=== PATIENT | male | born 1960 | race Caucasian/White ===

== ENCOUNTER 2017-05-26 09:06 | Observation (INO) | payer BC ==
--- NOTE | 2017-05-26 09:43 | ER Document Report ---
ED Medical Screen (RME) - General Chief Complaint: Abscess Stated Complaint: RECTAL PROBLEM Time Seen by Provider: 05/26/17 09:38 Notes: 56 yo male c/o rectal pain x 1 week. pt has hx/o perirectal abscess which was surgically drained about 1 1/2 yrs ago. pt was seen by pcm 3 days ago for same , given antibiotic injection and oral antibiotics, but pain has intensified. TRAVEL OUTSIDE OF THE [place] IN LAST 30 DAYS: No - Related Data Allergies/Adverse Reactions: No Known Allergies Allergy (Unverified 02/11/14 09:46) Past Medical History - Social History Chew tobacco use (# tins/day): No Frequency of alcohol use: None Drug Abuse: None - Past Medical History Cardiac Medical History: Reports: Hx Hypercholesterolemia, Hx Hypertension - ON MEDICATIONS...STATES CONTROLLED Denies: Hx Coronary Artery Disease - HIGH CHOLESTEROL, Hx Heart Attack Pulmonary Medical History: Denies: Hx Asthma, Hx Bronchitis, Hx COPD, Hx Pneumonia Neurological Medical History: Denies: Hx Cerebrovascular Accident, Hx Seizures Renal/ Medical History: Denies: Hx Peritoneal Dialysis Musculoskeltal Medical History: Denies Hx Arthritis Past Surgical History: Reports: Hx Orthopedic Surgery - Immunizations Hx Diphtheria, Pertussis, Tetanus Vaccination: No Physical Exam - Vital signs Vitals: Temp Pulse Resp BP Pulse Ox 98.6 F 91 20 144/80 H 96 05/26/17 09:15 05/26/17 09:15 05/26/17 09:15 05/26/17 09:15 05/26/17 09:15 Course - Vital Signs Vital signs: Temp Pulse Resp BP Pulse Ox 98.6 F 91 20 144/80 H 96 05/26/17 09:15 05/26/17 09:15 05/26/17 09:15 05/26/17 09:15 05/26/17 09:15
--- NOTE | 2017-05-26 11:19 | ER Document Report ---
ED General - General Chief Complaint: Abscess Stated Complaint: RECTAL PROBLEM Time Seen by Provider: 05/26/17 09:38 TRAVEL OUTSIDE OF THE [place] IN LAST 30 DAYS: No - HPI Notes: Patient is a 56-year-old male who presents the ED complaining of an abscess near his rectum 5 days. Patient states that he was evaluated by his PCM 3 days ago and was given a shot and sent home on antibiotics of which he cannot remember what he is on. Patient states that the pain and swelling have worsened. He has not noticed any obvious drainage. Patient states that he has had 2 perirectal abscesses in the past with the latest having to be taken care of by a general surgeon. His last PO intake was last evening. Patient states that he has felt feverish on and off without any objective temperature. He has been taking some [id number] meds with minimal relief. Denies any headache , neck stiffness, URI, sore throat, chest pain, palpitations, syncope, cough, shortness of breath, wheeze, dyspnea, abdominal pain, nausea/vomiting/diarrhea, urinary retention, dysuria, hematuria, or rash. Denies any drug allergies. Patient has a medical history significant for hypertension, hypercholesterolemia , and gout. - Related Data Allergies/Adverse Reactions: No Known Allergies Allergy (Unverified 02/11/14 09:46) Past Medical History - Social History Smoking Status: Current Some Day Smoker Chew tobacco use (# tins/day): No Frequency of alcohol use: None Drug Abuse: None Family History: Reviewed & Not Pertinent - Past Medical History Cardiac Medical History: Reports: Hx Hypercholesterolemia, Hx Hypertension - ON MEDICATIONS...STATES CONTROLLED Denies: Hx Coronary Artery Disease - HIGH CHOLESTEROL, Hx Heart Attack Pulmonary Medical History: Denies: Hx Asthma, Hx Bronchitis, Hx COPD, Hx Pneumonia Neurological Medical History: Denies: Hx Cerebrovascular Accident, Hx Seizures Renal/ Medical History: Denies: Hx Peritoneal Dialysis Musculoskeltal Medical History: Denies Hx Arthritis Past Surgical History: Reports: Hx Orthopedic Surgery - Immunizations Hx Diphtheria, Pertussis, Tetanus Vaccination: No Review of Systems - Review of Systems Notes: REVIEW OF SYSTEMS: CONSTITUTIONAL : see hpi EENT: Denies eye, ear, throat, or mouth pain or symptoms. Denies nasal or sinus congestion or discharge. Denies throat, tongue, or mouth swelling or difficulty swallowing. CARDIOVASCULAR: Denies chest pain. Denies palpitations or racing or irregular heart beat. Denies ankle edema. RESPIRATORY: Denies cough, cold, or chest congestion. Denies shortness of breath, difficulty breathing, or wheezing. GASTROINTESTINAL: Denies abdominal pain or distention. Denies nausea, vomiting , or diarrhea. Denies blood in vomitus, stools, or per rectum. Denies black, tarry stools. Denies constipation. GENITOURINARY: Denies difficulty urinating, painful urination, burning, frequency, blood in urine, or discharge. MUSCULOSKELETAL: Denies back or neck pain or stiffness. Denies joint pain or swelling. SKIN: see hpi HEMATOLOGIC : Denies easy bruising or bleeding. LYMPHATIC: Denies swollen, enlarged glands. NEUROLOGICAL: Denies confusion or altered mental status. Denies passing out or loss of consciousness. Denies dizziness or lightheadedness. Denies headache. Denies weakness or paralysis or loss of use of either side. Denies problems with gait or speech. Denies sensory loss, numbness, or tingling. ALL OTHER SYSTEMS REVIEWED AND NEGATIVE. Dictation was performed using [employer] voice recognition software Physical Exam - Vital signs Vitals: Temp Pulse Resp BP Pulse Ox 98.6 F 91 20 144/80 H 96 05/26/17 09:15 05/26/17 09:15 05/26/17 09:15 05/26/17 09:15 05/26/17 09:15 Notes: PHYSICAL EXAMINATION: GENERAL: Well-appearing, well-nourished and in no acute distress. LUNGS: Breath sounds clear to auscultation bilaterally and equal. No wheezes rales or rhonchi. HEART: Regular rate and rhythm without murmurs, rubs, gallops. ABDOMEN: Soft, nontender, nondistended abdomen. No guarding, no rebound. No masses appreciated. Normal bowel sounds present. No CVA tenderness bilaterally. Musculoskeletal: FROM to passive/active. Strength 5+/5. Extremities: No cyanosis, clubbing, or edema b/l. Peripheral pulses 2+. Capillary refill less than 3 seconds. NEUROLOGICAL: Normal speech. Normal sensory, motor exams PSYCH: Normal mood, normal affect. SKIN: + erythema/induration (perirectal abscess) left medial buttock. The abscess does feel deep and it seems as though it tracks towards the anus. + tenderness to palp. No discharge. approx 3x4cm +/- Course - Re-evaluation Re-evalutation: 05/26/17 11:15 Patient is an afebrile, well-hydrated, 56-year-old male who presents to the ED with a suspected perirectal abscess. Vitals are stable. PE otherwise unremarkable at this time. Dr. Castillo (Gen Surg) notified who will come and eval the patient. CBC, CMP, saline lock, & NPO ordered. Last PO intake was last evening. 05/26/17 11:40 Dr. Castillo evaluated the patient and accepted care. Further direction per Gen. Surgery. - Vital Signs Vital signs: Temp Pulse Resp BP Pulse Ox 98.6 F 91 20 144/80 H 96 05/26/17 09:15 05/26/17 09:15 05/26/17 09:15 05/26/17 09:15 05/26/17 09:15 - Laboratory Result Diagrams: 05/26/17 11:30 05/26/17 11:30 Discharge - Discharge Clinical Impression: Li-rectal abscess Condition: Stable Disposition: ADMITTED INPATIENT Admitting Provider: Surgicalist - Dr. Castillo Unit Admitted: Surgical Floor
[2017-05-26 11:40] LABS: ABSOLUTE BASOPHILS # (AUTO) 0.1 10^3/uL (0.0-0.2); ABSOLUTE EOSINOPHILS # (AUTO) 0.1 10^3/uL (0.0-0.6); ABSOLUTE LYMPHOCYTES (AUTO) 1.4 10^3/uL (0.5-4.7); ABSOLUTE MONOCYTES (AUTO) 1.1 10^3/uL (0.1-1.4); ABSOLUTE NEUT (AUTO) 9.7 10^3/uL (1.7-8.2); BASOPHILS % (AUTO) 1.2 % (0-2); EOSINOPHILS % (AUTO) 0.6 % (0-6); HEMATOCRIT 44.2 % (37.9-51.0); HEMOGLOBIN 15.2 g/dL (13.5-17.0); HGB HCT DIFFERENCE 1.4; LYMPHOCYTES % (AUTO) 11.1 % (13-45); MEAN CORPUSCULAR HEMOGLOBIN 29.7 pg (27.0-33.4); MEAN CORPUSCULAR HGB CONC 34.5 g/dL (32.0-36.0); MEAN CORPUSCULAR VOLUME 86 fl (80-97); MONOCYTES % (AUTO) 8.8 % (3-13); RED BLOOD COUNT 5.14 10^6/uL (4.35-5.55); RED CELL DISTRIBUTION WIDTH 13.6 % (11.5-14.0); SEGMENTED NEUTROPHILS % (AUTO) 78.3 % (42-78); WHITE BLOOD COUNT 12.4 10^3/uL (4.0-10.5)
[2017-05-26] MEDS ORDERED: AMPICILLIN SOD/SULBACTAM 3 GM VIAL IV ONE (11:44)
[2017-05-26] MEDS ORDERED: RINGERS SOLUTION 1,000 ML IV PRN (11:46)
[2017-05-26 11:58] LABS: ALANINE AMINOTRANSFERASE 26 U/L (21-72); ALBUMIN 3.8 g/dL (3.5-5.0); ALKALINE PHOSPHATASE 61 U/L (38-126); ANION GAP 11 (5-19); ASPARTATE AMINO TRANSFERASE 17 U/L (17-59); BILIRUBIN,DIRECT 0.5 mg/dL (0.0-0.4); BILIRUBIN,TOTAL 1.1 mg/dL (0.2-1.3); BLOOD UREA NITROGEN 13 mg/dL (7-20); CALCIUM 9.3 mg/dL (8.4-10.2); CARBON DIOXIDE 29 mmol/L (22-30); CHLORIDE 98 mmol/L (98-107); CREATININE RESULT 0.91 mg/dL (0.52-1.25); GLUCOSE 270 mg/dL (75-110); POTASSIUM 4.8 mmol/L (3.6-5.0); SODIUM 138.4 mmol/L (137-145); TOTAL PROTEIN 6.7 g/dL (6.3-8.2)
--- NOTE | 2017-05-26 12:05 | PDOC H&P ---
History of Present Illness Admission Date/PCP: 05/26/17 11:52 Patient complains of: Perianal pain History of Present Illness: CAROL RICH JR is a 56 year old male Who presents to the emergency department complaining a week and a half history of left perianal swelling, pain. Patient has a history of perianal abscess drained in 2 years ago on the left side in [place] once in the emergency department and once in the operating room. After the second operation, he had a wound that was packed at home. The patient did well until recently when he developed the above symptoms. 2 days ago he was seen in urgent care where he was diagnosed with perianal abscess, given an IV injection and given pain medications and p.o. antibiotics to take at home. Symptoms did not completely resolve so is seeking additional medical care. He seen in the emergency department by the ER physician and felt to have a recurrent perianal abscess. Surgery was consulted, the patient evaluated, and offered surgical treatment. Past Medical History Cardiac Medical History: Reports: Hyperlipidema, Hypertension - ON MEDICATIONS...STATES CONTROLLED Denies: Coronary Artery Disease - HIGH CHOLESTEROL, Myocardial Infarction Pulmonary Medical History: Denies: Asthma, Bronchitis, Chronic Obstructive Pulmonary Disease (COPD), Pneumonia Neurological Medical History: Denies: Seizures Musculoskeltal Medical History: Denies: Arthritis Hematology: Denies: Anemia Past Surgical History Past Surgical History: Reports: Orthopedic Surgery, Other - Repair of umbilical hernia; perianal abscess drainage; right second fing Social History Smoking Status: Current Some Day Smoker Family History Family History: Reviewed & Not Pertinent Parental Family History Reviewed: Yes Children Family History Reviewed: Yes Sibling(s) Family History Reviewed.: Yes Medication/Allergy Home Medications: Allopurinol [Zyloprim 300 mg Tablet] 300 mg PO DAILY 02/17/14 Amlodipine Besylate 10 mg PO DAILY 02/17/14 Simvastatin 40 mg PO DAILY 02/17/14 Valsartan/Hydrochlorothiazide [Valsartan-Hctz 320-25 mg Tab] 325 mg PO DAILY 12/28 Allergies/Adverse Reactions: No Known Allergies Allergy (Unverified 02/11/14 09:46) Review of Systems Constitutional: ABSENT: chills, fever(s), headache(s), weight gain, weight loss Eyes: ABSENT: visual disturbances Ears: ABSENT: hearing changes Cardiovascular: ABSENT: chest pain, dyspnea on exertion, edema, orthropnea, palpitations Respiratory: PRESENT: cough - Chronic Gastrointestinal: PRESENT: other - Patient is been having regular bowel movements. Genitourinary: ABSENT: dysuria, hematuria Musculoskeletal: ABSENT: joint swelling Integumentary: ABSENT: rash, wounds Neurological: ABSENT: abnormal gait, abnormal speech, confusion, dizziness, focal weakness, syncope Psychiatric: ABSENT: anxiety, depression, homidical ideation, suicidal ideation Endocrine: ABSENT: cold intolerance, heat intolerance, polydipsia, polyuria Physical Exam Vital Signs: Temp Pulse Resp BP Pulse Ox 98.6 F 91 20 144/80 H 96 05/26/17 09:15 05/26/17 09:15 05/26/17 09:15 05/26/17 09:15 05/26/17 09:15 General appearance: PRESENT: no acute distress Head exam: PRESENT: normocephalic Eye exam: PRESENT: EOMI Ear exam: PRESENT: TM's normal bilaterally Neck exam: PRESENT: carotid bruit, full ROM Respiratory exam: PRESENT: rhonchi Cardiovascular exam: PRESENT: RRR Pulses: PRESENT: +1 pedal pulses bilateral, +2 pedal pulses bilateral Vascular exam: PRESENT: normal capillary refill GI/Abdominal exam: PRESENT: other - No abdominal distention operative scars consistent with previous surgery. Rectal exam: PRESENT: other - Anal crease. There is diffuse tenderness, swelling induration left perianal tissue extending towards the perineum. There is scar consistent with previous surgery. There is no active drainage. I did not digitalize the anal rectal canal Musculoskeletal exam: PRESENT: full ROM Neurological exam: PRESENT: alert, awake, oriented to person, oriented to place Psychiatric exam: PRESENT: appropriate affect Skin exam: PRESENT: normal color Assessment & Plan - Diagnosis (1) Li-rectal abscess Is this a current diagnosis for this admission?: Yes Plan: Assessment: Patient's clinical examination in light of his remote and recent history is most consistent with recurrent left perianal abscess; may have a previously undiagnosed fistula in ano. Last colonoscopy over 10 years ago, reportedly normal. Recommendation 1. Keep n.p.o. IV fluids IV antibiotics 2. Take patient to the operating room for exam under anesthesia, drainage of septic focus, possible fistulectomy, possible seton placement 3. Patient may be able to go home later today or tomorrow morning. (2) Gout Is this a current diagnosis for this admission?: No (3) Obesity Is this a current diagnosis for this admission?: Yes (4) Morbid obesity with BMI of 45.0-49.9, adult Is this a current diagnosis for this admission?: Yes (5) HTN (hypertension) Is this a current diagnosis for this admission?: Yes (6) Hypercholesterolemia Is this a current diagnosis for this admission?: Yes - Time Time Spent: 50 to 70 Minutes Critical Time spent with patient: Less than 15 minutes Smoking Cessation Education: 3 to 10 minutes Medications reviewed and adjusted accordingly: Yes Anticipated discharge: Home - Inpatient Certification Medical Necessity: Need For IV Fluids, Need for IV Antibiotics, Need for Surgery
[2017-05-26] MEDS ORDERED: BUPIVACAINE HCL 0.25 % INJ/PF (2.5 MG/1 ML) 30 ML VIAL ONE (12:58)
[2017-05-26] MEDS ORDERED: METOCLOPRAMIDE HCL INJ/PF 10 MG/2 ML SDV ONE (13:07)
[2017-05-26] MEDS ORDERED: GLYCOPYRROLATE INJ 0.4 MG/2 ML VIAL ONE (13:07)
[2017-05-26] MEDS ORDERED: LIDOCAINE 2% INJ-PF (20 MG/ML) 10 ML AMPUL ONE (13:07)
[2017-05-26] MEDS ORDERED: DEXAMETHASONE SOD PHOSPHATE INJ 4 MG/1 ML VIAL ONE (13:07)
[2017-05-26] MEDS ORDERED: ONDANSETRON HCL INJ/PF 4 MG/2 ML SDV ONE (13:07)
[2017-05-26] MEDS ORDERED: ONDANSETRON HCL INJ/PF 4 MG/2 ML SDV IV PRN (13:47)
[2017-05-26] MEDS ORDERED: KETOROLAC TROMETHAMINE 10 MG TABLET PO PRN (13:48)
--- NOTE | 2017-05-26 16:02 | EKG REPORT ---
SEVERITY:- NORMAL ECG - SINUS RHYTHM : Confirmed by: Zach Santoro MD 26-May-2017 16:01:03
--- NOTE | 2017-05-26 16:38 | OPERATIVE REPORT E ---
Operative Report NAME: CAROL RICH : 1960 AGE: 56Y DATE OF SURGERY: 05/26/2017 ROOM: 425 PREOPERATIVE DIAGNOSIS: Perianal abscess, left lateral position. POSTOPERATIVE DIAGNOSIS: Perianal abscess, left lateral position. OPERATION: 1. Examination under anesthesia. 2. Drainage of perianal abscess with packing of abscess cavity. SURGEON: ANGELA HOFFMAN M.D. ANESTHESIA: Spinal with Marcaine local. COMPLICATIONS: None. FINDINGS: See below. ESTIMATED BLOOD LOSS: Minimal. DRAINS: None. TISSUE REMOVED: Nonviable skin and subcutaneous tissue. SUMMARY OF PROCEDURE: The patient was taken from the holding area to the main operating room where successful spinal anesthesia was induced. The patient was then placed in the supine position, then rolled onto his stomach so that he was in the prone position. Bed was jackknifed. The patient strapped into position. Buttocks cleaned. Hair clipped. Buttocks spread widely and taped into position. The perianal tissue was prepped and draped in a sterile fashion. A surgical plan and surgical timeout were conducted. Findings were significant for a subtle but firm mass like effect in the patient's left perianal tissue at the 3 o'clock position. A radially oriented 3 cm incision was made into the deep subcutaneous tissue, and we immediately broke into a very large pus pocket. Approximately 200 mL of pus was evacuated. This was sent for culture and sensitivity. Using my index finger, I broke off loculations cephalad, caudad, laterally and even towards the anorectal canal. There were several pockets that felt like they had a chronic wall to them. Superficially there was some nonviable fatty tissue anterior to this incision going towards the patient's left lateral but slightly anterior orientation that was debrided with electrocautery. This tissue was disposed of. Of note, the patient had scar tissue in the 1 o'clock left lateral position consistent with previous incision and drainage procedure. We easily dilated up the anorectal canal to admit 2 index fingers. The bullet anoscope was inserted. There were circumferential hemorrhoids, nonprolapsed, nonthrombosed. There was some scar tissue posteriorly just distal to the dentate line. This appeared chronic. I did examine the dentate line carefully, looking for an internal opening and I could see none. We then used a number of maneuvers including probe and retractors to see if we could insinuate a metal probe from the abscess cavity into the anal canal, partially in the posterior midline if the fistula was present and following *------* [place] rule. No fistula could be identified. I did very carefully under controlled conditions inject some peroxide into the abscess cavity and I saw none bubbling into the anal canal. Therefore, attempts to identify a fistula were aborted at this time. We felt the operation was complete. The cavity was irrigated several more times with saline and then packed open with approximately 2-1/2 feet of 1/2-inch Iodoform packing. The patient tolerated the procedure well, taken to the recovery room in stable condition. DICTATING PHYSICIAN: ANGELA HOFFMAN M.D. [id number] PHY#: [id number] ID: [id number] JOB#: [id number] ACCT: [id number] cc:ANGELA HOFFMAN M.D. >
[2017-05-26 17:50] VITALS: BP 123/60
[2017-05-26] MEDS ORDERED: DOCUSATE SODIUM 100 MG CAPSULE PO SCH (18:00)
== END 2017-05-26 18:48 | disposition home or self-care (01) ==
LOC: ER 09:06 → UNDOADMIN 11:52 → EH 11:52 → INTOOBSV 12:05 → EH 12:05 → 4S 14:41
PROC: 0D9Q0ZZ Drainage of Anus, Open Approach (ICD-10-PCS; principal; 2017-05-26 12:30)
DX: K61.0 Anal abscess (principal); I10 Essential (primary) hypertension; E78.5 Hyperlipidemia, unspecified; M10.9 Gout, unspecified; E66.01 Morbid (severe) obesity due to excess calories; F17.200 Nicotine dependence, unspecified, uncomplicated
CPT/HCPCS: 93005; 99284; 36415; 87070; 87205; 85025; 87075; 87077; 80053; 87186; 93010; 46050; A6266; J1100; J0295; J2765; J2405; J3490; 902

== ENCOUNTER 2019-05-13 14:02 | Emergency (ER) | payer SELFPAY ==
[2019-05-13] MEDS ORDERED: CLONIDINE HCL 0.1 MG TABLET PO ONE ×3 (14:39→17:24)
[2019-05-13] MEDS ORDERED: PROMETHAZINE HCL 25 MG TABLET PO ONE (14:50)
[2019-05-13] MEDS ORDERED: OXYCODONE-ACETAMINOPHEN 5-325 MG TABLET PO ONE (14:50)
[2019-05-13 15:41] LABS: ABSOLUTE BASOPHILS # (AUTO) 0.1 10^3/uL (0.0-0.2); ABSOLUTE EOSINOPHILS # (AUTO) 0.1 10^3/uL (0.0-0.6); ABSOLUTE LYMPHOCYTES (AUTO) 2.1 10^3/uL (0.5-4.7); ABSOLUTE MONOCYTES (AUTO) 0.9 10^3/uL (0.1-1.4); ABSOLUTE NEUT (AUTO) 9.1 10^3/uL (1.7-8.2); BASOPHILS % (AUTO) 0.8 % (0-2); EOSINOPHILS % (AUTO) 0.9 % (0-6); HEMATOCRIT 44.4 % (37.9-51.0); HEMOGLOBIN 15.3 g/dL (13.5-17.0); LYMPHOCYTES % (AUTO) 17.1 % (13-45); MEAN CORPUSCULAR HEMOGLOBIN 29.2 pg (27.0-33.4); MEAN CORPUSCULAR HGB CONC 34.5 g/dL (32.0-36.0); MEAN CORPUSCULAR VOLUME 85 fl (80-97); MONOCYTES % (AUTO) 7.1 % (3-13); PLATELET COUNT 256 10^3/uL (150-450); RED BLOOD COUNT 5.25 10^6/uL (4.35-5.55); RED CELL DISTRIBUTION WIDTH 13.7 % (11.5-14.0); SEGMENTED NEUTROPHILS % (AUTO) 74.1 % (42-78); TOTAL CELLS COUNTED % (AUTO) 100 %; WHITE BLOOD COUNT 12.2 10^3/uL (4.0-10.5)
[2019-05-13 15:48] LABS: ALBUMIN 4.4 g/dL (3.5-5.0); ALKALINE PHOSPHATASE 65 U/L (38-126); ANION GAP 11 (5-19); ASPARTATE AMINO TRANSFERASE 26 U/L (17-59); BILIRUBIN,DIRECT 0.4 mg/dL (0.0-0.4); BILIRUBIN,TOTAL 0.6 mg/dL (0.2-1.3); BLOOD UREA NITROGEN 10 mg/dL (7-20); CALCIUM 9.7 mg/dL (8.4-10.2); CARBON DIOXIDE 27 mmol/L (22-30); CHLORIDE 101 mmol/L (98-107); GLUCOSE 173 mg/dL (75-110); POTASSIUM 3.5 mmol/L (3.6-5.0); TOTAL PROTEIN 7.4 g/dL (6.3-8.2)
[2019-05-13] MEDS ORDERED: POTASSIUM CHLORIDE 10 MEQ CAPSULE.ER PO ONE (15:56)
[2019-05-13] MEDS ORDERED: AMLODIPINE BESYLATE 10 MG TABLET PO ONE (17:23)
--- NOTE | 2019-05-13 17:59 | ER Document Report ---
ED Blood Pressure Problem - General Chief Complaint: Headache Stated Complaint: HEADACHE Time Seen by Provider: 05/13/19 14:30 Primary Care Provider: ISA ALFONSO PA-C [Primary Care Provider] - Follow up as needed Notes: Patient is here because his blood pressure was very high at a dental appointment and he was unable to get a tooth pulled because the dentist sent him here for evaluation and care. Patient says that he has had no symptoms except for this broken tooth that he needs pulled. He has not had any nausea or vomiting, dizziness, vision disturbances, and only developed a headache when he was told at the dentist office that they would not be able to pull his tooth because his blood pressure was so high. Patient has a history of high blood pressure and was on several medications for his blood pressure. He has not taken blood pressure medicines for the past 4 to 6 months. Denies any chest pains. Denies any difficulty breathing or shortness of breath. Only complaint is of pain from the fractured tooth in the left upper posterior aspect of his mouth. TRAVEL OUTSIDE OF THE [place] IN LAST 30 DAYS: No - Related Data Allergies/Adverse Reactions: No Known Allergies Allergy (Verified 05/13/19 14:03) Past Medical History - Social History Smoking Status: Smoker,Current Status Unk - Patient says he smokes 1 or 2 cigars every Saturday night, but does not smoke cigarettes. Chew tobacco use (# tins/day): No Frequency of alcohol use: None Drug Abuse: None Family History: Reviewed & Not Pertinent Patient has suicidal ideation: No Patient has homicidal ideation: No - Past Medical History Cardiac Medical History: Reports: Hx Hypercholesterolemia, Hx Hypertension Renal/ Medical History: Reports: Hx Kidney Stones - passed them about 17 yrs ago Past Surgical History: Reports: Hx Orthopedic Surgery, Other - Repair of u mbilical hernia; perianal abscess drainage; right second fing - Immunizations Hx Diphtheria, Pertussis, Tetanus Vaccination: No Review of Systems - Review of Systems Notes: REVIEW OF SYSTEMS: CONSTITUTIONAL : Denies fever. EENT: Denies eye, ear, nose or mouth or throat pain or other symptoms. Dental pain from fractured tooth, see HPI. CARDIOVASCULAR: Denies chest pain. RESPIRATORY: Denies cough, chest congestion, or shortness of breath. GASTROINTESTINAL: Denies abdominal pain or nausea, vomiting, or diarrhea. GENITOURINARY: Denies difficulty or painful urinating, urinary frequency, blood in urine. MUSCULOSKELETAL: Denies back or neck pain. Denies joint pain or swelling. SKIN: Denies rash or skin lesions. NEUROLOGICAL: Denies LOC or altered mental status. See HPI regarding headache. Denies sensory loss or motor deficits. ALL OTHER SYSTEMS REVIEWED AND NEGATIVE. Physical Exam - Vital signs Vitals: Temp Pulse Resp BP Pulse Ox 98.1 F 85 20 229/133 H 93 05/13/19 14:08 05/13/19 14:08 05/13/19 14:08 05/13/19 14:08 05/13/19 14:08 Interpretation: Hypertensive - 229/133 at triage. Notes: PHYSICAL EXAMINATION: GENERAL: Well-appearing, in no acute distress. Weight 150 kg HEAD: Atraumatic, normocephalic. EYES: Pupils equal round and reactive to light, extraocular movements intact. ENT: oropharynx clear without exudates. Moist mucous membranes. Fractured tooth in the upper left posterior most aspect of the patient's mouth. No adjacent soft tissue swelling like an abscess. Patient says his dentist gave him antibiotics including a shot. NECK: Normal range of motion, supple. LUNGS: Breath sounds clear and equal bilaterally. HEART: Regular rate and rhythm without murmurs. ABDOMEN: Soft, nontender. No guarding or rebound. No masses. BACK: No tenderness throughout entire back. EXTREMITIES: Normal range of motion without pain. NEUROLOGICAL: Normal speech, normal gait. Normal sensory, motor, and reflex exams. Awake, alert, and oriented x3. Cranial nerves normal. PSYCH: Normal mood, normal affect. SKIN: Warm, dry, no rashes. Course - Re-evaluation Re-evalutation: 05/13/19 18:07 Discussed the patient's case with nephrology on-call and have implemented doses of clonidine 0.1 - .2 mg every 30 minutes or so until patient's blood pressure is down in the 160-170 area. However, patient's blood pressure was slow to decrease to that level so I also gave him 10 mg of amlodipine p.o. His blood pressure now seems to be trending downward and I think is going to be reasonable and safe to let him go soon. - Vital Signs Vital signs: Temp Pulse Resp BP Pulse Ox 98.1 F 85 22 H 194/109 H 96 05/13/19 14:08 05/13/19 14:08 05/13/19 18:02 05/13/19 18:02 05/13/19 18:02 - Laboratory Result Diagrams: 05/13/19 14:34 05/13/19 15:19 Laboratory results interpreted by me: 05/13/19 05/13/19 14:34 15:19 WBC 12.2 H Absolute Neuts (auto) 9.1 H Potassium 3.5 L Glucose 173 H 05/13/19 18:12 Renal function intact. Minimal hypokalemia. Discharge - Discharge Clinical Impression: Hypertension, Fractured tooth Condition: Stable Disposition: HOME, SELF-CARE Additional Instructions: HIGH BLOOD PRESSURE REQUIRING TREATMENT: Your blood pressure is high. This is called "hypertension." Today's reading was 223/133 (normal is less than 140/90). Your history and exam suggest that this is not a temporary problem. You need treatment of your blood pressure. If left untreated, high blood pressure greatly increases your risk of heart attack and stroke. Please don't ignore this problem. If you have blood pressure medicine but aren't using it regularly, start taking it again. Some simple things you can do to help are: Get some aerobic exercise for at least 20 minutes on a daily basis. (See your doctor before beginning any new exercise program.) Eat a low-fat diet. Lose excess weight. Avoid salty foods and avoid adding salt to any of the foods you eat. Avoid diet pills, decongestants, "energizing" herbs, and other medicines that elevate blood pressure. There are many different medicines that treat blood pressure. If your medication causes unpleasant side effects, call your doctor. There are others you can try. Treating hypertension is a life-long investment in your health. CLONIDINE (CATAPRES): Clonidine is blood-pressure medicine given to you here in the emergency department.. It works in your brain, making the nervous system relax the blood vessels. This medicine can also be used for symptoms of narcotic withdrawal. Clonidine frequently causes dry mouth, drowsiness, and dizziness. These symptoms go away as you continue to use it. Rest for the first couple of days. Don't drive or use machinery until you're back to normal. Never stop clonidine suddenly! There can be a "rebound" severe increase in blood pressure, headache, and agitation. Be sure you always have enough of the medicine. Call the doctor if you have any new symptoms such as skin rash, weakness, severe lightheadedness, chest pain, headache, or depression. CALCIUM CHANNEL BLOCKERS: A medication of the calcium channel mildred type has been prescribed for you. Examples of this type of medicine are Calan, Isoptin, Procardia, and Cardizem. These medicines have a variety of uses, including prevention of angina attacks, treatment of blood pressure, regulation of certain heart rhythm problems, and prevention of migraine headaches. Calcium channel blockers work by interfering with the flow of calcium in cell membranes. This results in dilation of blood vessels, and slowing of electrical conduction in the heart. A slight dizziness (due to a fall in blood pressure) may occur with the first dose, and sometimes even with later doses. This may make you prone to dizziness if you stand up suddenly. Call the doctor if lightheadedness is severe, or if you develop palpitations, shortness of breath, or any other new or alarming symptoms. Take the amlodipine (Norvasc) 10 mg pill once a day in the mornings as prescribed.. Our target for your blood pressure initially is about 160-170. You do not need to get her blood pressure any lower than that to start with. If the amlodipine alone is keeping her blood pressure in that area of 160-170, you do not need to do anything else except follow-up with a physician to adjust your medications if needed. If your blood pressure stays above 160-170, I have given you a prescription for clonidine, which you were given here in the emergency room this evening, and you can take 1 of those pills up to 3 times a day to keep your blood pressure in the 160-170 area. FOLLOW-UP CARE: If you have been referred to a physician for follow-up care, call the physicians office for an appointment as you were instructed or within the next two days. If you experience worsening or a significant change in your symptoms, notify the physician immediately or return to the Emergency Department at any time for re-evaluation. You need to have your blood pressure rechecked by a primary care provider to adjust your medications in the next week or 10 days. TOOTHACHE: Your pain is due to dental decay. The tooth must be repaired in order for you to feel better. You will, therefore, be referred to a dentist. We do not have dentists on the staff at [facility]. Severe swelling or drainage around a tooth usually means a dental abscess. This also requires evaluation and treatment by the dentist, but antibiotics may be prescribed while awaiting dental treatment. You should be rechecked immediately if you develop major swelling of the face, increasing pain, a lump in the jaw or gums, headache, difficulty swallowing, or fever. ORAL NARCOTIC MEDICATION: You have been given a prescription for pain control. This medication is a narcotic. It's best taken with food, as nausea can result if taken on an empty stomach. Don't operate machinery or drive within six hours of taking this medication. Do not combine this medicine with alcohol, or with any medication which can cause sedation (such as cold tablets or sleeping pills) unless you get permission from the physician. Narcotics tend to cause constipation. If possible, drink plenty of fluids and eat a diet high in fiber and fruits. Please be aware that prescription narcotics also have the potential for abuse. People become addicted to these medications because of the general sense of wellbeing that they induce. This feeling along with a significant reduction in tension, anxiety, and aggression provides a stimulating seductive quality to these drugs. Once your pain is under control, we encourage you to discard your unused narcotics. Antinausea Medication You have been given a medication to suppress nausea and vomiting. This type of medication can be given as a shot, pill, or suppository. It will usually last for many hours. Pills and shots usually last six to eight hours, suppositories last about 12 hours. For the typical illness, only one or two doses of the medication may be necessary. Mild lightheadedness may occur. This type of medicine can cause drowsiness. Do not drive or operate dangerous machinery while under its influence. Do not mix with alcohol. See your doctor at once if you have muscle spasms or tightness, or unco ntrollable motions (particularly of the neck, mouth, or jaw). Persistent vomiting or severe lightheadedness should also be evaluated by the physician. Follow-up with your dentist tomorrow regarding having your tooth pulled as soon as possible Prescriptions: Clonidine HCl [Catapres 0.1 mg Tablet] 0.1 mg PO TIDP PRN #30 tablet PRN Reason: Amlodipine Besylate [Norvasc 10 mg Tablet] 10 mg PO DAILY #30 tablet Oxycodone HCl/Acetaminophen [Percocet 5-325 mg Tablet] 1 - 2 tab PO Q4H PRN #20 tablet PRN Reason: Promethazine HCl [Phenergan 25 mg Tablet] 1 - 2 tab PO Q6H PRN #15 tablet PRN Reason: Referrals: ISA ALFONSO PA-C [Primary Care Provider] - Follow up as needed
[2019-05-13 18:04] VITALS: BP 194/109
== END 2019-05-13 19:20 | disposition home or self-care (01) ==
LOC: ER 14:02
DX: S02.5XXA Fracture of tooth (traumatic), initial encounter for closed fracture (principal); I10 Essential (primary) hypertension; R51 Headache; X58.XXXA Exposure to other specified factors, initial encounter; F17.210 Nicotine dependence, cigarettes, uncomplicated
CPT/HCPCS: 36415; 80053; 85025; 99284